=== PATIENT | female | born 1975 | race Caucasian/White ===

== ENCOUNTER 2020-02-21 09:11 | Inpatient (IN) | payer OTHER ==
[2020-02-21] MEDS ORDERED: ONDANSETRON *ODT* 4 MG TABLET SL PRN (09:51)
[2020-02-21] MEDS ORDERED: MAG HYDROX/AL HYDROX/SIMETH 30 ML UNIT-DOSE CUP PO PRN (09:51)
[2020-02-21] MEDS ORDERED: IBUPROFEN 400 MG TABLET (FP) PO PRN (09:51)
[2020-02-21] MEDS ORDERED: MENTHOL/PHENOL 1 EACH UD MM PRN (09:51)
[2020-02-21] MEDS ORDERED: chlordiazePOXIDE HCL 25 MG CAPSULE PO ONE (09:51)
[2020-02-21] MEDS ORDERED: ACETAMINOPHEN 325 MG TABLET (FP) PO PRN ×2 (09:51)
[2020-02-21] MEDS ORDERED: METHOCARBAMOL 500 MG TABLET PO PRN (09:51)
[2020-02-21] MEDS ORDERED: MAGNESIUM CITRATE 300 ML BOTTLE PO PRN (09:51)
[2020-02-21] MEDS ORDERED: MAGNESIUM HYDROX 2400MG/30ML ORAL SUSPENSION 30 ML CUP PO PRN (09:51)
[2020-02-21] MEDS ORDERED: BISMUTH SUBSALICYLATE 524 MG/30 ML UD PO PRN (09:51)
[2020-02-21 10:15] VITALS: BMI 30.6
[2020-02-21] MEDS: chlordiazePOXIDE HCL 25 MG CAPSULE PO SCH ×3 (11:15→22:20)
[2020-02-21] MEDS: PRENATAL VITAMINS W/ FOLIC ACID TABLET (FP) PO SCH (11:15)
[2020-02-21 11:54] LABS: HEMATOCRIT 39.1 % (32.4-45.2); HEMOGLOBIN 13.3 GM/dL (10.7-15.3); MCH 33.6 pg (25.7-33.7); MEAN CELL VOLUME 98.9 fl (80-96); MEAN PLT VOLUME 7.5 fl (7.5-11.1); PLATELET COUNT 376 K/MM3 (134-434); RBC 3.95 M/mm3 (3.60-5.2); RDW 14.8 % (11.6-15.6); WHITE BLOOD COUNT 6.1 K/mm3 (4.0-10.0)
[2020-02-21 11:56] LABS: ALBUMIN 3.7 g/dl (3.4-5.0); CALCIUM 8.5 mg/dL (8.5-10.1)
[2020-02-21 11:57] LABS: BLOOD UREA NITROGEN 11.4 mg/dL (7-18)
[2020-02-21 12:00] LABS: CREATININE 0.8 mg/dL (0.55-1.3)
[2020-02-21 12:02] LABS: BILIRUBIN,TOTAL 0.5 mg/dL (0.2-1); TOT PROT 7.8 g/dl (6.4-8.2)
[2020-02-21] MEDS: hydrOXYzine PAMOATE 25 MG CAPSULE (FP) PO PRN ×2 (13:50→18:34)
[2020-02-21] MEDS: chlordiazePOXIDE HCL 25 MG CAPSULE PO PRN (19:22)
[2020-02-21] MEDS: MELATONIN 5 MG TABLETS PO SCH (22:20)
[2020-02-21] MEDS: THIAMINE HCL 100 MG TABLET (FP) PO SCH (22:20)
[2020-02-22] MEDS: chlordiazePOXIDE HCL 25 MG CAPSULE PO SCH ×4 (05:44→22:05)
[2020-02-22] MEDS: hydrOXYzine PAMOATE 25 MG CAPSULE (FP) PO PRN ×2 (05:44→10:23)
[2020-02-22] MEDS: PRENATAL VITAMINS W/ FOLIC ACID TABLET (FP) PO SCH (10:22)
[2020-02-22] MEDS: PARoxetine HCL 20 MG TABLET PO SCH (14:45)
[2020-02-22] MEDS: hydrOXYzine PAMOATE 50 MG CAPSULE (FP) PO PRN ×2 (17:16→22:06)
[2020-02-22] MEDS: chlordiazePOXIDE HCL 25 MG CAPSULE PO PRN (20:35)
[2020-02-22] MEDS: THIAMINE HCL 100 MG TABLET (FP) PO SCH (22:05)
[2020-02-22] MEDS: MELATONIN 5 MG TABLETS PO SCH (22:05)
[2020-02-23] MEDS: chlordiazePOXIDE HCL 25 MG CAPSULE PO SCH ×4 (06:08→22:15)
[2020-02-23] MEDS: PARoxetine HCL 20 MG TABLET PO SCH (09:57)
[2020-02-23] MEDS: PRENATAL VITAMINS W/ FOLIC ACID TABLET (FP) PO SCH (09:57)
[2020-02-23] MEDS: chlordiazePOXIDE HCL 25 MG CAPSULE PO PRN (13:01)
[2020-02-23] MEDS: hydrOXYzine PAMOATE 50 MG CAPSULE (FP) PO PRN ×2 (13:02→17:47)
[2020-02-23 20:36] LABS: PH,URINE 5.5 (5.0-8.0); URINE APPEARANCE CLEAR; URINE BILIRUBIN NEGATIVE (NEGATIVE); URINE COLOR YELLOW; URINE GLUCOSE (UA) NEGATIVE (NEGATIVE); URINE KETONE NEGATIVE (NEGATIVE); URINE LEUK ESTERASE NEGATIVE (NEGATIVE); URINE NITRITE NEGATIVE (NEGATIVE); URINE PROTEIN NEGATIVE (NEGATIVE); URINE UROBILINOGEN 0.2 mg/dL (0.2-1.0)
[2020-02-23] MEDS: MELATONIN 5 MG TABLETS PO SCH (22:15)
[2020-02-23] MEDS: THIAMINE HCL 100 MG TABLET (FP) PO SCH (22:17)
[2020-02-24] MEDS ORDERED: chlordiazePOXIDE HCL 10 MG CAPSULE PO PRN
[2020-02-24] MEDS: chlordiazePOXIDE HCL 10 MG CAPSULE PO SCH ×4 (05:44→22:05)
[2020-02-24] MEDS: PRENATAL VITAMINS W/ FOLIC ACID TABLET (FP) PO SCH (10:04)
[2020-02-24] MEDS: PARoxetine HCL 20 MG TABLET PO SCH (10:04)
[2020-02-24] MEDS: hydrOXYzine PAMOATE 50 MG CAPSULE (FP) PO PRN ×2 (15:42→22:08)
[2020-02-24] MEDS: MELATONIN 5 MG TABLETS PO SCH (22:05)
[2020-02-24] MEDS: THIAMINE HCL 100 MG TABLET (FP) PO SCH (22:08)
[2020-02-25] MEDS: hydrOXYzine PAMOATE 50 MG CAPSULE (FP) PO PRN ×3 (05:50→22:22)
[2020-02-25] MEDS: chlordiazePOXIDE HCL 10 MG CAPSULE PO SCH ×2 (05:50→17:18)
[2020-02-25] MEDS: PARoxetine HCL 20 MG TABLET PO SCH (09:38)
[2020-02-25] MEDS: PRENATAL VITAMINS W/ FOLIC ACID TABLET (FP) PO SCH (09:38)
[2020-02-25] MEDS: THIAMINE HCL 100 MG TABLET (FP) PO SCH (22:20)
[2020-02-25] MEDS: MELATONIN 5 MG TABLETS PO SCH (22:21)
[2020-02-26] MEDS ORDERED: chlordiazePOXIDE HCL 10 MG CAPSULE PO ONE (05:00)
[2020-02-26] MEDS: hydrOXYzine PAMOATE 50 MG CAPSULE (FP) PO PRN (05:43)
[2020-02-26 09:15] VITALS: BP 130/80; PULSE 72; TEMP 97.3
== END 2020-02-26 09:27 | disposition home or self-care (01) | DRG 774 ==
LOC: YASAS 09:11 → Y3N 10:34
PROVIDERS: ADMIT Allergy & Immunology; ATTEND Allergy & Immunology
PROC: HZ2ZZZZ Detoxification Services for Substance Abuse Treatment (ICD-10-PCS; principal; 2020-02-21)
DX: F10.230 Alcohol dependence with withdrawal, uncomplicated (principal); F14.90 Cocaine use, unspecified, uncomplicated; F17.210 Nicotine dependence, cigarettes, uncomplicated; F10.280 Alcohol dependence with alcohol-induced anxiety disorder; F10.24 Alcohol dependence with alcohol-induced mood disorder; F19.24 Other psychoactive substance dependence with psychoactive substance-induced mood disorder; F41.0 Panic disorder [episodic paroxysmal anxiety]
CPT/HCPCS: 36415; 80053; 81003; 81025; 85027; 86780; 93005; 93010; C9803; U0003

== ENCOUNTER 2021-09-19 11:31 | Inpatient (IN) | payer OTHER ==
[2021-09-19 11:49] VITALS: BMI 29.9
[2021-09-19] MEDS ORDERED: MAGNESIUM CITRATE 300 ML BOTTLE PO PRN (12:23)
[2021-09-19] MEDS ORDERED: MAGNESIUM HYDROX 2400MG/30ML ORAL SUSPENSION 30 ML CUP PO PRN (12:23)
[2021-09-19] MEDS ORDERED: LOPERAMIDE HCL 2 MG CAPSULE PO PRN (12:23)
[2021-09-19] MEDS ORDERED: ACETAMINOPHEN 325 MG TABLET (FP) PO PRN ×2 (12:23)
[2021-09-19] MEDS ORDERED: DICYCLOMINE HCL 10 MG CAPSULE PO PRN (12:23)
[2021-09-19] MEDS ORDERED: ONDANSETRON *ODT* 4 MG TABLET SL PRN (12:23)
[2021-09-19] MEDS ORDERED: BENZOCAINE/MENTHOL (CHLORASEPTIC ) LOZENGE MM PRN (12:23)
[2021-09-19] MEDS ORDERED: BISMUTH SUBSALICYLATE 262 MG/15 ML BTL PO PRN (12:23)
[2021-09-19] MEDS ORDERED: IBUPROFEN 400 MG TABLET (FP) PO PRN (12:23)
[2021-09-19] MEDS ORDERED: MAG HYDROX/AL HYDROX/SIMETH 30 ML UNIT-DOSE CUP PO PRN (12:23)
[2021-09-19] MEDS ORDERED: METHOCARBAMOL 500 MG TABLET PO PRN (12:23)
[2021-09-19] MEDS ORDERED: IBUPROFEN 600 MG TABLET (FP) PO PRN (12:23)
[2021-09-19] MEDS ORDERED: chlordiazePOXIDE HCL 25 MG CAPSULE PO PRN (12:23)
[2021-09-19] MEDS ORDERED: PRENATAL VITAMINS W/ FOLIC ACID TABLET (FP) PO SCH (12:30)
[2021-09-19 13:58] VITALS: TEMP 96.9
[2021-09-19] MEDS: hydrOXYzine PAMOATE 25 MG CAPSULE (FP) PO SCH ×3 (14:00→22:57)
[2021-09-19 15:19] LABS: HEMATOCRIT 40.5 % (32.4-45.2); HEMOGLOBIN 13.3 GM/dL (10.7-15.3); MCH 32.8 pg (25.7-33.7); MCHC 32.7 g/dl (32.0-36.0); MEAN PLT VOLUME 8.5 fl (7.5-11.1); PLATELET COUNT 304 10^3/uL (134-434); RBC 4.05 M/mm3 (3.60-5.2); RDW 17.2 % (11.6-15.6); WHITE BLOOD COUNT 6.1 K/mm3 (4.0-10.0)
[2021-09-19 15:49] LABS: BLOOD UREA NITROGEN 5.5 mg/dL (7-18); CALCIUM 9.5 mg/dL (8.5-10.1)
[2021-09-19 15:50] LABS: ALBUMIN 4.4 g/dl (3.4-5.0)
[2021-09-19 15:53] LABS: CREATININE 1.1 mg/dL (0.55-1.3)
[2021-09-19 15:54] LABS: BILIRUBIN,TOTAL 0.6 mg/dL (0.2-1); TOT PROT 8.4 g/dl (6.4-8.2)
[2021-09-19 16:20] VITALS: BP 126/88; PULSE 152
[2021-09-19] MEDS: chlordiazePOXIDE HCL 25 MG CAPSULE PO SCH ×2 (18:50→22:57)
[2021-09-19] MEDS ORDERED: THIAMINE HCL 100 MG TABLET (FP) PO SCH (22:00)
[2021-09-19] MEDS ORDERED: MELATONIN 5 MG TABLETS PO SCH (22:00)
[2021-09-19] MEDS ORDERED: MUPIROCIN 2% TOPICAL OINTMENT FOR DECOLONIZATION NS SCH (22:30)
[2021-09-19] MEDS ORDERED: TRIMETHOBENZAMIDE HCL 300 MG CAPSULE PO PRN (23:23)
[2021-09-19] MEDS ORDERED: LORazepam 2 MG/ML SDV VIAL IVPUSH ONE (23:53)
[2021-09-20] MEDS ORDERED: MELATONIN 5 MG TABLETS PO PRN (00:02)
[2021-09-20] MEDS ORDERED: LORazepam 1 MG TABLET PO PRN (00:02)
[2021-09-20] MEDS ORDERED: PANTOPRAZOLE 40 MG TABLET PO SCH (10:00)
[2021-09-20] MEDS ORDERED: CHLORHEXIDINE GLUCONATE 4% CLEANSER FOR DECOLONIZATION TP SCH (22:00)
[2021-09-20] MEDS ORDERED: LORazepam 2 MG TABLET PO SCH (23:00)
[2021-09-21] MEDS ORDERED: chlordiazePOXIDE HCL 25 MG CAPSULE PO SCH (05:00)
[2021-09-22] MEDS ORDERED: chlordiazePOXIDE HCL 10 MG CAPSULE PO PRN
[2021-09-22] MEDS ORDERED: chlordiazePOXIDE HCL 10 MG CAPSULE PO SCH (05:00)
[2021-09-22] MEDS ORDERED: LORazepam 1 MG TABLET PO SCH (05:00)
[2021-09-23] MEDS ORDERED: LORazepam 0.5 MG TABLET PO PRN
[2021-09-23] MEDS ORDERED: LORazepam 0.5 MG TABLET PO SCH (05:00)
[2021-09-23] MEDS ORDERED: chlordiazePOXIDE HCL 10 MG CAPSULE PO SCH (05:00)
[2021-09-24] MEDS ORDERED: LORazepam 0.5 MG TABLET PO ONE (05:00)
[2021-09-24] MEDS ORDERED: chlordiazePOXIDE HCL 10 MG CAPSULE PO ONE (05:00)
== END 2021-09-20 00:05 | disposition short-term general hospital (02) | DRG 775 ==
LOC: YASAS 11:31 → Y3N 12:54
PROVIDERS: ADMIT Allergy & Immunology; ATTEND Surgery
PROC: HZ2ZZZZ Detoxification Services for Substance Abuse Treatment (ICD-10-PCS; principal; 2021-09-19)
DX: F10.230 Alcohol dependence with withdrawal, uncomplicated (principal); F16.10 Hallucinogen abuse, uncomplicated; F41.9 Anxiety disorder, unspecified; I47.1 Supraventricular tachycardia; G47.00 Insomnia, unspecified; Z87.891 Personal history of nicotine dependence; Z86.59 Personal history of other mental and behavioral disorders
CPT/HCPCS: 36415; 80053; 81025; 85027; 86780; 87811; 93005; 93010; C9803-CS; U0003; U0005

== ENCOUNTER 2021-09-19 17:16 | Inpatient (IN) | payer OTHER ==
[2021-09-19] MEDS ORDERED: dilTIAZem HCL 125 MG/25 ML - 25 ML VIAL ONE ×2 (17:20→19:21)
[2021-09-19] MEDS ORDERED: LORazepam 2 MG/ML SDV VIAL IVPB ONE ×2 (17:22→17:31)
[2021-09-19] MEDS ORDERED: ONDANSETRON 4 MG/2 ML VIAL IVPB ONE (17:23)
[2021-09-19] MEDS ORDERED: dilTIAZem HCL 50 MG/10 ML - 10 ML VIAL IVPUSH ONE ×3 (17:27→18:59)
[2021-09-19] MEDS ORDERED: SODIUM CHLORIDE 0.9% 500 ML INFUS.BAG IV ONE ×3 (17:44→22:56)
[2021-09-19] MEDS ORDERED: FOLIC ACID INJECTION - 1 MG, THIAMINE HCL 100 MG, MULTIVIT INJECTION ADULT 10 ML in SOD... IVPB ONE (18:55)
[2021-09-19] MEDS ORDERED: FAMOTIDINE 20 MG/50 ML IVPB 20 MG/50 ML MG IVPB ONE ×2 (19:26→19:28)
[2021-09-19 19:38] LABS: BASO % 0.4 % (0-2.0); CHLORIDE 103 mmol/L (98-107); EOS % 0.2 % (0-4.5); HEMATOCRIT 37.6 % (32.4-45.2); HEMOGLOBIN 12.3 GM/dL (10.7-15.3); LYMPH % 13.9 % (8-40); MCH 32.8 pg (25.7-33.7); MCHC 32.8 g/dl (32.0-36.0); MEAN CELL VOLUME 99.8 fl (80-96); MEAN PLT VOLUME 8.1 fl (7.5-11.1); MONO % 10.2 % (3.8-10.2); NEUT % 75.3 % (42.8-82.8); PLATELET COUNT 249 10^3/uL (134-434); RBC 3.76 M/mm3 (3.60-5.2); RDW 17.3 % (11.6-15.6); SODIUM 138 mmol/L (136-145); WHITE BLOOD COUNT 6.5 K/mm3 (4.0-10.0)
[2021-09-19 19:40] LABS: ANION GAP 21 MMOL/L (8-16); BLOOD UREA NITROGEN 6.2 mg/dL (7-18); CALCIUM 8.1 mg/dL (8.5-10.1); CO2 14 mmol/L (21-32); GLUCOSE,RANDOM 86 mg/dL (74-106); LIPASE 134 U/L (73-393); MAGNESIUM 2.1 mg/dL (1.8-2.4)
[2021-09-19 19:41] LABS: ALBUMIN 3.6 g/dl (3.4-5.0)
[2021-09-19 19:43] LABS: CREATININE 0.9 mg/dL (0.55-1.3); SGOT/AST 157 U/L (15-37); SGPT/ALT 112 U/L (13-61)
[2021-09-19 19:45] LABS: BILIRUBIN,TOTAL 0.6 mg/dL (0.2-1); TOT PROT 7.1 g/dl (6.4-8.2)
[2021-09-19 19:46] LABS: ALK PHOS 110 U/L (45-117)
[2021-09-19 19:47] LABS: INR 0.97 (0.83-1.09); PROTHROMBIN TIME (PATIENT) 11.2 SEC (9.7-13.0)
[2021-09-19 19:50] LABS: ACTIVATED PTT 29.4 SECONDS (25.2-36.5)
[2021-09-19] MEDS ORDERED: QUEtiapine FUMARATE 100 MG TABLET (FP) PO ONE (21:06)
[2021-09-19] MEDS ORDERED: QUEtiapine FUMARATE 25 MG TABLET ONE (21:32)
[2021-09-19] MEDS ORDERED: QUEtiapine FUMARATE 100 MG TABLET (FP) ONE (21:32)
[2021-09-19 21:48] LABS: EPI CELLS 25 /uL (0-25.1); HYALINE CASTS 2 /uL (0-3.1); PH,URINE 5.5 (5.0-8.0); URINE APPEARANCE CLEAR; URINE BACTERIA 450 /uL (0-1359); URINE BILIRUBIN NEGATIVE (NEGATIVE); URINE COLOR YELLOW; URINE GLUCOSE (UA) NEGATIVE (NEGATIVE); URINE KETONE 4+ (NEGATIVE); URINE LEUK ESTERASE NEGATIVE (NEGATIVE); URINE NITRITE NEGATIVE (NEGATIVE); URINE PROTEIN 1+ (NEGATIVE); URINE UROBILINOGEN 0.2 mg/dL (0.2-1.0); URINE WBC 6 /uL (0-25.8)
[2021-09-19 22:04] LABS: URINE RBC 20.6 /uL (0-23.9)
[2021-09-20] MEDS ORDERED: chlordiazePOXIDE HCL 25 MG CAPSULE PO PRN (00:01)
[2021-09-20] MEDS ORDERED: LORazepam 1 MG TABLET PO PRN (00:05)
[2021-09-20] MEDS ORDERED: LORazepam 2 MG/ML SDV VIAL IVPUSH ONE (00:33)
[2021-09-20] MEDS ORDERED: LORazepam 1 MG TABLET PO ONE (00:43)
[2021-09-20] MEDS: MUPIROCIN 2% TOPICAL OINTMENT FOR DECOLONIZATION NS SCH ×3 (00:57→21:34)
[2021-09-20] MEDS: APIXABAN 5 MG TABLET PO SCH ×2 (02:21→09:48)
[2021-09-20] MEDS ORDERED: DEXTROSE 50%-WATER - 25 GM/50 ML VIAL IVPUSH PRN (04:26)
[2021-09-20] MEDS ORDERED: INSULIN REGULAR 100 UNITS in SODIUM CHLORIDE 99 ML IVPB SCH (04:30)
[2021-09-20] MEDS ORDERED: D5-1/2NS+20 MEQ KCL - 20 MEQ/1,000 ML INFUS.BAG IV SCH ×2 (04:45→08:09)
[2021-09-20] MEDS ORDERED: LORazepam 1 MG TABLET PO SCH (05:00)
[2021-09-20 05:03] LABS: VENOUS O2 SATURATION 99.1 % (70-80); VENOUS PCO2 26.2 mmHg (38-52); VENOUS PH 7.281 (7.310-7.410)
[2021-09-20 05:20] LABS: BLOOD UREA NITROGEN 4.3 mg/dL (7-18); CALCIUM 7.5 mg/dL (8.5-10.1)
[2021-09-20 05:23] LABS: CREATININE 0.8 mg/dL (0.55-1.3)
[2021-09-20 05:30] LABS: PHOSPHOROUS 1.2 mg/dL (2.5-4.9)
[2021-09-20] MEDS ORDERED: SODIUM CHLORIDE 1,000 ML IV STA (05:45)
[2021-09-20] MEDS ORDERED: SODIUM CHLORIDE 500 ML IV STA (05:48)
[2021-09-20] MEDS ORDERED: HEPARIN NA (PORCINE) 5,000 UNITS/ML 1ML VIAL SQ SCH (06:00)
[2021-09-20] MEDS ORDERED: DEXTROSE 50%-WATER 25 GM/50 ML DISP.SYRIN ONE (06:22)
[2021-09-20] MEDS ORDERED: NAPH,MB-DB/K PH,MBDB POWDER PACKET PO ONE (06:49)
[2021-09-20] MEDS: NAPH,MB-DB/K PH,MBDB POWDER PACKET PO SCH ×3 (08:32→21:33)
[2021-09-20] MEDS: dilTIAZem HCL 60 MG TABLET PO SCH ×3 (08:44→21:33)
[2021-09-20] MEDS: FOLIC ACID 1 MG TABLET (FP) PO SCH (09:48)
[2021-09-20] MEDS: THIAMINE HCL 100 MG TABLET (FP) PO SCH (09:48)
[2021-09-20] MEDS ORDERED: ENOXAPARIN NA (PORCINE) 40 MG/0.4 ML DISP.SYRIN SQ SCH (10:00)
[2021-09-20 11:11] LABS: VENOUS BASE EXCESS -9.7 mmol/L (-2-2); VENOUS PCO2 45.4 mmHg (38-52); VENOUS PH 7.212 (7.310-7.410)
[2021-09-20 11:32] LABS: CHLORIDE 105 mmol/L (98-107); SODIUM 138 mmol/L (136-145)
[2021-09-20 11:34] LABS: CALCIUM 7.7 mg/dL (8.5-10.1)
[2021-09-20 11:35] LABS: ANION GAP 12 MMOL/L (8-16); CO2 20 mmol/L (21-32); GLUCOSE,RANDOM 130 mg/dL (74-106); MAGNESIUM 2.1 mg/dL (1.8-2.4)
[2021-09-20 11:38] LABS: CREATININE 0.8 mg/dL (0.55-1.3)
[2021-09-20 11:40] LABS: COCAINE, UR NEGATIVE (NEGATIVE); METHADONE, UR NEGATIVE (NEGATIVE); OPIATES, URI NEGATIVE (NEGATIVE); URINE BARBITURATES NEGATIVE (NEGATIVE)
[2021-09-20 11:41] LABS: PHENCYCLIDINE,URINE NEGATIVE (NEGATIVE)
[2021-09-20] MEDS: LORazepam 1 MG TABLET PO SCH ×3 (11:41→23:14)
[2021-09-20 11:42] LABS: URINE AMPHETAMINES NEGATIVE (NEGATIVE)
[2021-09-20 11:46] LABS: URINE BENZODIAZEPINES POSITIVE (NEGATIVE)
[2021-09-20 12:19] LABS: PHOSPHOROUS 1.1 mg/dL (2.5-4.9)
[2021-09-20] MEDS ORDERED: SODIUM PHOSPHATE - 30 MM in SODIUM CHLORIDE 250 ML IVPB ONE (13:15)
[2021-09-20 20:45] LABS: BASO % 0.6 % (0-2.0); EOS % 4.9 % (0-4.5); HEMATOCRIT 32.7 % (32.4-45.2); LYMPH % 24.9 % (8-40); MCH 33.2 pg (25.7-33.7); MCHC 33.8 g/dl (32.0-36.0); MEAN CELL VOLUME 98.2 fl (80-96); MEAN PLT VOLUME 8.3 fl (7.5-11.1); NEUT % 59.6 % (42.8-82.8); PLATELET COUNT 222 10^3/uL (134-434); RBC 3.33 M/mm3 (3.60-5.2); RDW 17.4 % (11.6-15.6); WHITE BLOOD COUNT 4.3 K/mm3 (4.0-10.0)
[2021-09-20] MEDS: CHLORHEXIDINE GLUCONATE 4% CLEANSER FOR DECOLONIZATION TP SCH (21:34)
[2021-09-20] MEDS ORDERED: chlordiazePOXIDE HCL 25 MG CAPSULE PO SCH (23:00)
[2021-09-21] MEDS: LORazepam 0.5 MG TABLET PO SCH ×4 (04:40→23:04)
[2021-09-21] MEDS ORDERED: LORazepam 1 MG TABLET PO SCH (05:00)
[2021-09-21] MEDS: NAPH,MB-DB/K PH,MBDB POWDER PACKET PO SCH (05:59)
[2021-09-21 07:04] LABS: BASO % 0.6 % (0-2.0); EOS % 5.1 % (0-4.5); HEMATOCRIT 34.5 % (32.4-45.2); HEMOGLOBIN 11.9 GM/dL (10.7-15.3); LYMPH % 29.1 % (8-40); MCH 33.6 pg (25.7-33.7); MCHC 34.5 g/dl (32.0-36.0); MEAN CELL VOLUME 97.3 fl (80-96); MEAN PLT VOLUME 8.1 fl (7.5-11.1); MONO % 7.6 % (3.8-10.2); NEUT % 57.6 % (42.8-82.8); PLATELET COUNT 231 10^3/uL (134-434); RBC 3.54 M/mm3 (3.60-5.2); RDW 17.2 % (11.6-15.6); WHITE BLOOD COUNT 3.8 K/mm3 (4.0-10.0)
[2021-09-21 07:13] LABS: INR 0.97 (0.83-1.09); PROTHROMBIN TIME (PATIENT) 11.1 SEC (9.7-13.0)
[2021-09-21 07:16] LABS: ACTIVATED PTT 30.5 SECONDS (25.2-36.5)
[2021-09-21 07:28] LABS: ALBUMIN 3.5 g/dl (3.4-5.0)
[2021-09-21 07:31] LABS: BILIRUBIN,DIRECT 0.2 mg/dL (0.0-0.2); URIC ACID 7.1 mg/dL (2.6-7.2)
[2021-09-21 07:33] LABS: BILIRUBIN,TOTAL 0.6 mg/dL (0.2-1); TOT PROT 6.8 g/dl (6.4-8.2)
[2021-09-21 07:34] LABS: CHLORIDE 101 mmol/L (98-107); SODIUM 139 mmol/L (136-145)
[2021-09-21 07:36] LABS: CALCIUM 8.7 mg/dL (8.5-10.1)
[2021-09-21 07:37] LABS: ALBUMIN 3.5 g/dl (3.4-5.0); ANION GAP 9 MMOL/L (8-16); CO2 28 mmol/L (21-32); GLUCOSE,RANDOM 151 mg/dL (74-106); MAGNESIUM 1.9 mg/dL (1.8-2.4)
[2021-09-21 07:40] LABS: CREATININE 0.7 mg/dL (0.55-1.3); PHOSPHOROUS 1.4 mg/dL (2.5-4.9); SGOT/AST 96 U/L (15-37); SGPT/ALT 98 U/L (13-61)
[2021-09-21 07:41] LABS: BILIRUBIN,TOTAL 0.5 mg/dL (0.2-1)
[2021-09-21 07:43] LABS: ALK PHOS 98 U/L (45-117)
[2021-09-21 08:07] LABS: BLOOD UREA NITROGEN 2.3 mg/dL (7-18)
[2021-09-21] MEDS: POTASSIUM CHLORIDE TABS 20 MEQ TABLET.ER (FP) PO SCH ×2 (09:06→21:59)
[2021-09-21] MEDS: THIAMINE HCL 100 MG TABLET (FP) PO SCH (09:07)
[2021-09-21] MEDS: FOLIC ACID 1 MG TABLET (FP) PO SCH (09:07)
[2021-09-21] MEDS: ASPIRIN COATED 81 MG TABLET.EC PO SCH (09:08)
[2021-09-21] MEDS: MUPIROCIN 2% TOPICAL OINTMENT FOR DECOLONIZATION NS SCH ×2 (09:08→22:00)
[2021-09-21] MEDS ORDERED: MAG HYDROX/AL HYDROX/SIMETH 30 ML UNIT-DOSE CUP PO PRN (12:20)
[2021-09-21] MEDS ORDERED: FAMOTIDINE 20 MG TABLET PO ONE (12:45)
[2021-09-21 14:48] VITALS: BMI 35.6
[2021-09-21] MEDS: CHLORHEXIDINE GLUCONATE 4% CLEANSER FOR DECOLONIZATION TP SCH (22:00)
[2021-09-22] MEDS ORDERED: LORazepam 0.5 MG TABLET PO PRN
[2021-09-22] MEDS ORDERED: chlordiazePOXIDE HCL 25 MG CAPSULE PO SCH (05:00)
[2021-09-22] MEDS ORDERED: LORazepam 0.5 MG TABLET PO SCH (05:00)
[2021-09-22] MEDS ORDERED: LORazepam 0.5 MG TABLET PO ONE (06:00)
[2021-09-22] MEDS ORDERED: LORazepam 1 MG TABLET PO PRN (06:38)
[2021-09-22 08:13] LABS: BASO % 0.8 % (0-2.0); EOS % 4.2 % (0-4.5); HEMATOCRIT 34.4 % (32.4-45.2); HEMOGLOBIN 11.7 GM/dL (10.7-15.3); LYMPH % 29.9 % (8-40); MCH 33.3 pg (25.7-33.7); MCHC 34.1 g/dl (32.0-36.0); MEAN CELL VOLUME 97.8 fl (80-96); MEAN PLT VOLUME 7.9 fl (7.5-11.1); MONO % 9.2 % (3.8-10.2); NEUT % 55.9 % (42.8-82.8); PLATELET COUNT 233 10^3/uL (134-434); RBC 3.51 M/mm3 (3.60-5.2); WHITE BLOOD COUNT 3.4 K/mm3 (4.0-10.0)
[2021-09-22 08:46] LABS: ALBUMIN 3.2 g/dl (3.4-5.0); BLOOD UREA NITROGEN 6.9 mg/dL (7-18); CALCIUM 8.9 mg/dL (8.5-10.1); MAGNESIUM 1.5 mg/dL (1.8-2.4)
[2021-09-22 08:49] LABS: CREATININE 0.7 mg/dL (0.55-1.3)
[2021-09-22 08:51] LABS: BILIRUBIN,TOTAL 0.4 mg/dL (0.2-1); TOT PROT 6.2 g/dl (6.4-8.2)
[2021-09-22] MEDS: ASPIRIN COATED 81 MG TABLET.EC PO SCH (09:11)
[2021-09-22] MEDS ORDERED: MULTIVITAMINS (DAILY MVI) TABLET (FP) PO SCH (10:00)
[2021-09-22] MEDS ORDERED: MUPIROCIN 2% TOPICAL OINTMENT FOR DECOLONIZATION NS SCH (10:00)
[2021-09-22] MEDS ORDERED: FOLIC ACID 1 MG TABLET (FP) PO SCH (10:00)
[2021-09-22] MEDS ORDERED: PANTOPRAZOLE 20 MG TABLET PO SCH (10:00)
[2021-09-22] MEDS ORDERED: FAMOTIDINE 20 MG TABLET PO SCH (10:00)
[2021-09-22] MEDS ORDERED: THIAMINE HCL 100 MG TABLET (FP) PO SCH (10:00)
[2021-09-22 14:29] VITALS: BP 118/80; PULSE 93; TEMP 97.8
[2021-09-22] MEDS ORDERED: CHLORHEXIDINE GLUCONATE 4% CLEANSER FOR DECOLONIZATION TP SCH (22:00)
[2021-09-23] MEDS ORDERED: LORazepam 0.5 MG TABLET PO PRN ×2
[2021-09-23] MEDS ORDERED: chlordiazePOXIDE HCL 10 MG CAPSULE PO PRN
[2021-09-23] MEDS ORDERED: chlordiazePOXIDE HCL 10 MG CAPSULE PO SCH (05:00)
[2021-09-23] MEDS ORDERED: LORazepam 0.5 MG TABLET PO ONE (06:00)
[2021-09-24] MEDS ORDERED: LORazepam 0.5 MG TABLET PO ONE (05:00)
[2021-09-24] MEDS ORDERED: chlordiazePOXIDE HCL 10 MG CAPSULE PO SCH (05:00)
[2021-09-25] MEDS ORDERED: chlordiazePOXIDE HCL 10 MG CAPSULE PO ONE (05:00)
== END 2021-09-22 18:58 | disposition home or self-care (01) | DRG 201 ==
LOC: JER 17:16 → JICU 19:38 → J4S 09-22 05:56
PROVIDERS: ADMIT Internal Medicine; ATTEND Nurse Practitioner Acute Care
PROC: HZ2ZZZZ Detoxification Services for Substance Abuse Treatment (ICD-10-PCS; principal; 2021-09-19)
DX: I47.1 Supraventricular tachycardia (principal); F10.231 Alcohol dependence with withdrawal delirium; E87.2 Acidosis; I24.8 Other forms of acute ischemic heart disease; I48.4 Atypical atrial flutter; F20.9 Schizophrenia, unspecified; R74.01 Elevation of levels of liver transaminase levels; F41.0 Panic disorder [episodic paroxysmal anxiety]; E66.9 Obesity, unspecified; Z68.37 Body mass index [BMI] 37.0-37.9, adult
CPT/HCPCS: 0241U-QW; 36415; 70450-TC; 71045-TC-FY; 76705-TC; 80048; 80053; 80076; 80307; 81003; 82010; 82272; 82550; 82607; 82728; 82746; 82803; 82962; 83036; 83540; 83550; 83605; 83690; 83735; 84100; 84443; 84484; 84550; 84702; 85025; 85610; 85730; 86704; 86708; 86709; 86803; 87040; 87086; 87340; 87517; 87522; 93005; 93010; 93306-TC; 93970-TC; 99291